=== PATIENT | male | born 1960 | race Caucasian/White ===

== ENCOUNTER 2020-02-24 01:05 | Outpatient (CLI) | payer OTHER, SELFPAY ==
--- NOTE | 2020-02-24 | DI.CTLCSR_ITS ---
EXAM: CT CHEST LUNG CANCER SCREEN CLINICAL HISTORY: SCREENING FOR LUNG CA,CURRENT SMOKER, F17.210 TECHNIQUE: COMPARISON: CT CT CHEST SCREENING STU from 12/08/2017 FINDINGS: CT examination of the chest was performed utilizing low-dose lung cancer screening protocol. Images obtained through the upper abdomen show unremarkable appearance of visualized portions of live r, spleen adrenals and kidneys No pleural effusion. No pleural based mass. No mediastinal or hilar adenopathy. Normal diameter of thoracic aorta. There is a 5 millimeter in diameter nodule laterally peripherally in the left upper lobe, this is unc hanged from prior study December 2017 from [facility]. No additional nodules identified on tod ay's examination. Tracheobronchial tree appears intact. IMPRESSION: Stable 5 millimeter left upper lobe peripheral nodule, noncalcified. Lung RADS Cat 1 - Negative: No nodules and definitely benign nodules Continue screening with LD CT in 12 months. RADIATION DOSE DELIVERED: 96.2mGy.cm Total DLP
== END 2020-02-24 01:25 ==
PROVIDERS: PCP Family Medicine; Visit Provider Nurse Practitioner Family
DX: F17.210 Nicotine dependence, cigarettes, uncomplicated (principal); R91.1 Solitary pulmonary nodule
CPT/HCPCS: G0297